=== PATIENT | female | born 2000 | race Caucasian/White ===

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

== ENCOUNTER 2019-02-18 11:53 | Emergency (ER) | payer BC ==
--- NOTE | 2019-02-18 12:56 | UC ---
Dental HPI - HPI Summary HPI Summary: 19 yo female presents with left facial numbness. She tells me that on 02/16 she noticed numbness to her left jaw that persisted throughout the day. Did not cross midline of her lips, but did encompass her bottom lip and lower left gums. Yesterday she had about 1-2 hours of inability to move the left lower part of her facial muscles and still had numbness. This gradually improved and movement returned. Today the paralysis has resolved, but she still has numbness to the area. She notes that about 3 weeks ago she had a dentist appt for a cavity filling and since that time has had some left TMJ pain. Has never had issues with TMJ in the past. She denies fever, chills, injury, recent illness, sinus symptoms, sore throat, ear pain, change in vision or hearing, difficulty swallowing, headache, dizziness, numbness elsewhere, SOB, chest pain, rash, n/ v. No recent tick bite or hx of lyme - History of Current Complaint Stated Complaint: JAW COMPLAINT Time Seen by Provider: 02/18/19 12:56 Hx Obtained From: Patient Hx Last Menstrual Period: "Random" (IUD) Onset/Duration: Sudden Onset - Allergies/Home Medications Allergies/Adverse Reactions: Allergies Allergy/AdvReac Type Severity Reaction Status Date / Time No Known Allergies Allergy Verified 02/18/19 13:01 PMH/Surg Hx/FS Hx/Imm Hx - Additional Past Medical History Additional PMH: None Other History Of: Negative For: HIV, Hepatitis B, Hepatitis C, Anticoagulant Therapy - Surgical History Surgical History: None - Family History Known Family History: Positive: Cardiac Disease, Hypertension Negative: Blood Disorder - Social History Occupation: Student Lives: Dormitory/Roommates Alcohol Use: Occasionally Substance Use Type: None Smoking Status (MU): Never Smoked Tobacco - Immunization History Vaccination Up to Date: Yes Review of Systems All Other Systems Reviewed And Are Negative: No Constitutional: Positive: Negative Skin: Positive: Negative Eyes: Positive: Negative ENT: Positive: Negative Respiratory: Positive: Negative Cardiovascular: Positive: Negative Gastrointestinal: Positive: Negative Genitourinary: Positive: Negative Motor: Positive: Negative Neurovascular: Positive: Decreased Sensation - left face Musculoskeletal: Positive: Negative Neurological: Positive: Negative Psychological: Positive: Negative Physical Exam - Summary Physical Exam Summary: GENERAL: NAD. WDWN. No pain distress. SKIN: No rashes, sores, or open wounds. HEENT: Head: AT/NC Eyes: PERRLA. EOM intact. Conjunctiva clear without inflammation or discharge. Ears: Hearing grossly normal. TMs intact, no bulging, erythema, or edema. Nose: Nasal mucosa pink and moist. NTTP maxillary and frontal sinus. Throat: Posterior oropharynx without exudates, erythema, or tonsillar enlargement. Uvula midline. DENTAL: No cellulitis, edema, abscess, or fractured teeth. NECK: Supple. Nontender. No lymphadenopathy. CHEST: CTAB. No r/r/w. No accessory muscle use. Breathing comfortably and in no distress. CV: RRR. Pulses intact. Brisk cap refill. MSK: FROM and 5/5 strength throughout. No edema. NEURO: A&Ox3. 3 word recall, remote, recent memory, ability to follow 2-step directions, and attention intact. CN: II: Peripheral flores intact. Vision normal. III, IV, : EOMI. No nystagmus. PERRLA. V: V1 and V2 sensations intact b/l. V3 sensations significantly decreased on left compared to right. Does not cross midline. Does not extend into neck. Opens mouth and clenches teeth. VII: No facial asymmetry. Forehead wrinkles. Grins, shuts eyes, frowns, puffs cheeks. VIII: Hearing intact to finger rub. IX, X: Swallows and coughs. Uvula midline. XI: Shrugs shoulders. Turns head against resistance. XII: No tongue deviation [id number] are intact. Gait with normal base. Romberg: maintains balance, no pronator drift. Normal speech. No facial drooping. PSYCH: Age appropriate behavior. Triage Information Reviewed: Yes Vital Signs: Vital Signs: Temp Pulse Resp BP Pulse Ox 99.1 F 94 18 138/77 100 02/18/19 12:58 02/18/19 12:58 02/18/19 12:58 02/18/19 12:58 02/18/19 12:58 Vital Signs Reviewed: Yes Dental Complaint Course/Dx - Course Course Of Treatment: Suspect likely viral cause, but given vague symptom with no recent supporting etiology I discussed the case with Dr. Anderson. Recommend going to the ER for further evaluation. Discussed this with pt and she is agreeable to this - Differential Dx/Diagnosis Provider Diagnosis: Trigeminal nerve palsy Discharge ED - Sign-Out/Discharge Documenting (check all that apply): Patient Departure All imaging exams completed and their final reports reviewed: No Studies - Discharge Plan Condition: Stable Disposition: HOME-RECOMMEND TO ED Referrals: Brisa Varghese NP [Primary Care Provider] - Additional Instructions: Please go to the ER for further evaluation of your jaw numbness - Billing Disposition and Condition Condition: STABLE Disposition: Home-Recommend to ED - Attestation Statements Provider Attestation: I was available for consult. This patient was seen by the LE[facility]. The patient was not presented to, seen by, or examined by me. -Patrice
[2019-02-18 13:01] VITALS: BP 138/77
== END 2019-02-18 13:23 | disposition home health service (06) ==
LOC: UCCORT 11:53
DX: G50.8 Other disorders of trigeminal nerve (principal)
CPT/HCPCS: 99212; G0463